=== PATIENT | female | born 1965 | race African-American/Black ===

== ENCOUNTER 2016-07-15 18:54 | Emergency (ER) | payer MEDICARE ==
[~2016-07-15] VITALS: Ht 160 cm; Wt 87.5 kg
[2016-07-15 18:54] VITALS: BP 132/80
== END 2016-07-15 20:00 | disposition home or self-care (01) ==
LOC: ER 18:56
DX: J02.9 Acute pharyngitis, unspecified (principal); I10 Essential (primary) hypertension; J45.909 Unspecified asthma, uncomplicated
CPT/HCPCS: 99282; A4606; Z7610